=== PATIENT | male | born 1975 | race Caucasian/White ===

== ENCOUNTER → 2019-06-28 | Emergency (ER) | payer SELFPAY ==
[~2019-06-28] VITALS: Ht 180.3 cm; Wt 68.0 kg
[2019-06-28 21:38] VITALS: BP 118/72
== END | disposition left against medical advice (07) ==
LOC: ER 21:30
DX: S01.311A Laceration without foreign body of right ear, initial encounter (principal); Z53.21 Procedure and treatment not carried out due to patient leaving prior to being seen by health care provider; Y08.89XA Assault by other specified means, initial encounter; Y93.89 Activity, other specified; Y99.8 Other external cause status; Y92.89 Other specified places as the place of occurrence of the external cause